=== PATIENT | female | born 1985 | race Caucasian/White ===

== ENCOUNTER 2024-01-13 14:17 | Emergency (ER) | payer OTHER ==
[~2024-01-13] VITALS: Ht 170.2 cm; Wt 63.3 kg
[2024-01-13 15:51] VITALS: BP 109/64; PULSE 88; RESP 18; TEMP 98.7; O2SAT 98
[2024-01-13] MEDS ORDERED: IBUP-1454 PO (16:17)
[2024-01-13] MEDS ORDERED: METH-1181 PO (16:17)
[2024-01-13] MEDS: KETOROLAC TROMETH 60MG/2ML VIAL IM ONE (16:20)
== END 2024-01-13 16:29 | disposition home or self-care (01) ==
LOC: ER 14:19
DX: S16.1XXA Strain of muscle, fascia and tendon at neck level, initial encounter (principal); S39.012A Strain of muscle, fascia and tendon of lower back, initial encounter; V43.62XA Car passenger injured in collision with other type car in traffic accident, initial encounter; Y93.89 Activity, other specified; Y92.488 Other paved roadways as the place of occurrence of the external cause; Y99.8 Other external cause status
CPT/HCPCS: 72040; 72100; 96372; 99284; J1885

== ENCOUNTER 2024-08-30 22:19 | Emergency (ER) | payer MEDICAID, OTHER ==
[~2024-08-30] VITALS: Ht 170.2 cm; Wt 130.0 kg
[2024-08-30 22:19] VITALS: BP 142/92; RESP 16; O2SAT 99
[~2024-08-30 22:19] MED LIST: IBUP-1454 PO; METH-1181 PO
[2024-08-30 22:24] VITALS: PULSE 91
--- NOTE | 2024-08-30 22:52 | ED.PDOC ---
History of Present Illness HPI Comments 39-year-old female who came to ER via EMS for overdose. Patient has history of substance abuse and alcohol abuse. Patient was at a green party earlier today, was having drinks, and she was given a unknown pill. Patient took the said pill and she became drowsy and lethargic. Upon arrival of paramedics, patient was unresponsive to verbal stimuli, shallow breathing, with pinpoint pupils. Patient was given a total 4 mg of Narcan which woke her up. 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 Allergies: Coded Allergies: NO KNOWN ALLERGIES (Unverified , 12/10/09) Home Meds Active Scripts Methocarbamol (Methocarbamol) 500 Mg Tab, 500 MG PO BID, #20 TAB Prov:CHANG RICE 01/13/24 Ibuprofen (Ibuprofen) 600 Mg Tab, 1 TAB PO TID, #30 TAB Prov:CHANG RICE 01/13/24 Information Source: Patient, Emergency Med Personnel Mode of Arrival: EMS Severity: Moderate Timing: Hours Duration: Minutes Prehospital treatment: Treatment (Narcan) Past Medical History PAST MEDICAL HISTORY: Denies Surgical History: Denies all surgeries REINSTATEMENT CLERK 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: No 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 History Family History Family History: Reviewed,noncontributory to illness Social History Smoker: Non-Smoker Alcohol: Heavy Drugs: Cocaine, Marijuana Lives In: Home Constitutional: denies: chills, diaphoresis, fatigue, fever, malaise, sweats, weakness, others EENTM: denies: blurred vision, double vision, ear bleeding, ear discharge, ear drainage, ear pain, ear ringing, eye pain, eye redness, hearing loss, mouth pa in, mouth swelling, nasal discharge, nose bleeding, nose congestion, nose pain, photophobia, tearing, throat pain, throat swelling, voice changes, others Respiratory: denies: cough, hemoptysis, orthopnea, SOB at rest, shortness of breath, SOB with excertion, stridor, wheezing, others Cardiovascular: denies: chest pain, dizzy spells, diaphoresis, Dyspnea on exertion, edema, irregular heart beat, left arm pain, lightheadedness, palpitations, PND, syncope, others Gastrointestinal: denies: abdomen distended, abdominal pain, blood streaked bowels, constipated, diarrhea, dysphagia, difficulty swallowing, hematemesis, melena, nausea, poor appetite, poor fluid intake, rectal bleeding, rectal pain, vomiting, others Genitourinary: denies: abnormal vagina bleeding, burning, dyspareunia, dysuria, flank pain, frequency, hematuria, incontinence, pain, , vagina discharge, urgency, others Neurological: denies: dizziness, fainting, headache, left sided numbness, left sided weakness, numbness, paresthesia, pre-existing deficit, right sided numbness, right sided weakness, seizure, speech problems, tingling, tremors, weakness, others Musculoskeletal: denies: back pain, gout, joint pain, joint swelling, muscle pain, muscle stiffness, neck pain, others Integumetry: denies: bruises, change in color, change in hair/nails, dryness, laceration, lesions, lumps, rash, wounds, others Allergic/Immunocompromised: denies: Difficulty Healing, Frequent Infections, Hives, Itching, others Hematologic/Lymphatic: denies: anemia, blood clots, easy bleeding, easy bruising, swollen glands, others Endocrine: denies: excessive hunger, excessive sweating, excessive thirst, excessive urination, flushing, intolerance to cold, intolerance to heat, unexplained weight gain, unexplained weight loss, others Psychiatric: denies: anxiety, bipolar disorder, depression, hopeless, panic disorder, schizophrenia, sleepless, suicidal, others Physical Exam General Appearance: No Apparent Distress, Normal HEENT: Normal ENT Inspection, Pharynx Normal, TMs Normal Neck: Full Range of Motion, Non-Tender, Normal, Normal Inspection Respiratory: Chest Non-Tender, Lungs Clear, No Accessory Muscle Use, No Respiratory Distress, Normal Breath Sounds Cardiovascular: No Edema, No JVD, No Murmur, No Gallop, Normal Peripheral Pulses, Regular Rate/Rhythm Breast Exam: Deferred Gastrointestinal: No Organomegaly, Non Tender, No Pulsatile Mass, Normal Bowel Sounds, Soft Genitalia: Deferred Pelvic: Deferred Rectal: Deferred Extremities: No calf tenderness, Normal capillary refill, Normal inspection, Normal range of motion, Non-tender, No pedal edema Musculoskeletal : Apperance: Normal Neurologic: Alert, emergency department coordinator II-XII nml as Tested, No Motor Deficits, Normal Affect, Normal Mood, No Sensory Deficits Cerebellar Function: Normal Reflexes: Normal Skin: Dry, Normal Color, Warm Lymphatic: No Adenopathy Was a procedure done? Was a procedure done?: No Differential Dx Considerations may include: Substance abuse, alcohol intoxication, overdose X-Ray, Labs, Meds, VS Vital Signs Date Time Temp Pulse Resp B/P (MAP) Pulse Ox O2 Delivery O2 Flow Rate FiO2 08/30/24 22:24 91 08/30/24 22:19 98.4 107 16 142/92 (109) 99 Time of 1ST Reevaluation: 22:46 Reevaluation 1ST: Unchanged Patient Education/Counseling: Diagnosis, Treatment Family Education/Counseling: No Family Present Departure 1 Departure Time of Disposition: 05:57 (Patient with polysubstance abuse presents after an overdose but EMS treated with Narcan. Patient then eloped from the emergency department) Impression: Primary Impression: Polysubstance abuse Additional Impression: Opiate overdose Qualified Codes: T40.601A - Poisoning by unspecified narcotics, accidental (unintentional), initial encounter Disposition: 07 LEFT AWOL/ELOPED Condition: Serious Critical Care Note Critical Care Time?: No Stability Stability form required: No Heart Score Heart Score: Heart Score Response (Comments) Value History N/A 0 EKG N/A 0 Age N/A 0 Risk Factors N/A 0 Troponin N/A 0 Total 0 I personally scribed for NILES RIBIERO MD ([email or web address]) on 08/30/24 at 22:52. Electronically submitted by Leonel Cole ([facility]). NILES RIBEIRO MD Aug 30, 2024 22:52
--- NOTE | 2024-09-03 12:43 | ECG ---
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
== END 2024-08-30 22:49 | disposition left against medical advice (07) ==
LOC: EDBD 22:19 → ER 22:19
DX: T40.601A Poisoning by unspecified narcotics, accidental (unintentional), initial encounter (principal); F19.10 Other psychoactive substance abuse, uncomplicated; Y92.89 Other specified places as the place of occurrence of the external cause
CPT/HCPCS: 93005